=== PATIENT | male | born 1975 | race Caucasian/White ===

== ENCOUNTER 2017-05-11 13:10 | Emergency (ER) | payer SELFPAY ==
[2017-05-11 13:14] VITALS: BP 133/81; PULSE 60; RESP 18; TEMP 37; O2SAT 99; BMI 20.9
--- NOTE | 2017-05-11 13:27 | CT_ITS ---
CT abdomen pelvis wo con CLINICAL INDICATION: Right flank pain with nausea and vomiting ITS.REASON: vomiting/possible kidney stone ORDERING PHYSICIAN: Yann Batista MD PATIENT AGE: 41 years COMPARISON: 07/15/2015 TECHNIQUE: Axial images obtained with sagittal and coronal reformats. PROCEDURE: Oral Contrast: None IV Contrast: None . FINDINGS: Lung bases are clear. The liver, gallbladder, spleen, adrenal glands, and pancreas have an unremarkable unenhanced CT appearance. A tiny calcific density is present along the lateral aspect of the head of the pancreas unchanged and could represent calcification within a small lymph node or within the pancreas itself There is a 17 x 11 mm oval stone at the right ureteropelvic junction with mild right hydronephrosis. An additional 5 mm stone is present in the lower pole the right kidney. There is some minimal ureterectasis distal to the right ureteropelvic junction stone minimal stranding of the periureteral fat. The distal ureter is difficult to follow due to the unopacified bowel loops in patient's [place] of fat. There is however some mild dilatation of the mid ureter. In the right pelvic region there is a new calcific density measuring 3 mm suspicious for distal ureteral stone. This was not present on the previous CT scan of 07/15/2015. The appendix is not clearly delineated. No evidence however of appendicitis. No intestinal obstruction or free air. IMPRESSION: 1. Right ureteropelvic junction stone and 17 x 11 mm with mild right hydronephrosis. 2. 3 mm right distal ureteral stone with mild obstructive uropathy. 3. There are multiple unopacified bowel loops present within the abdomen/pelvis which could obscure or mimic pathology. If symptoms persists, consider repeating exam with IV and oral contrast administration
--- NOTE | 2017-05-11 13:53 | PC.NURSE ---
1350- PT to ct scan.
[2017-05-11 13:54] LABS: Basophils % 0.8 % (0.1-2.0); Eosinophils # 0.1 K/mm3 (0.0-0.4); Eosinophils % 2.8 % (0.1-12.0); Hematocrit 47.9 % (42.0-52.0); Hemoglobin 15.9 g/dL (14.1-18.0); Lymphocytes # 1.7 K/mm3 (0.7-4.5); Lymphocytes % 35.3 K/mm3 (10-50); Mean Corpuscular HGB Conc 33.2 g/dL (31.8-35.4); Mean Corpuscular Hemoglobin 31.1 pg (27.0-31.2); Mean Corpuscular Volume 93.5 fl (80-94); Mean Platelet Volume 8.8 fl (7.4-10.4); Monocytes # 0.2 K/mm3 (0.1-1.0); Monocytes % 4.5 % (1.7-9.3); Neutrophils # 2.7 K/mm3 (1.8-7.8); Neutrophils % 56.6 % (37.0-80.0); Platelet Count 127 K/mm3 (142-424); Red Blood Count 5.12 M/mm3 (4.60-6.20); Red Cell Distribution Width 12.5 % (11.5-17.5); White Blood Count 4.8 K/mm3 (4.8-10.8)
[2017-05-11 14:00] LABS: Alanine Aminotransferase 24 U/L (12-78); Albumin Level 3.9 gm/dL (3.4-5.0); Albumin/Globulin Ratio 1.2 (1.1-1.8); Alkaline Phosphatase 85 U/L (46-116); Amylase 57 U/L (25-125); Anion Gap 13.1 mEq/L (5-15); Aspartate Amino Transferase 14 U/L (15-37); Bilirubin,Total 0.6 mg/dL (0.2-1.0); Blood Urea Nitrogen 17 mg/dL (7-18); Calcium 8.6 mg/dL (8.5-10.1); Carbon Dioxide 29 mmol/L (21.0-32.0); Chloride 109 mmol/L (98-107); Creatinine Clearance Estimated 115 mL/min (0-300); Estimated Glomerular Filt Rate 106 ml/min (>60); GFR (African American) 128 ML/MIN (>60); Globulin 3.2 gm/dl (1.3-3.2); Glucose 100 mg/dL (74-106); Lipase 115 u/L (73-393); Potassium 4.1 mmoL/L (3.5-5.1); Sodium 147 mmol/L (136-145); Total Protein,Serum 7.1 gm/dL (6.4-8.2)
[2017-05-11 14:42] VITALS: BP 125/74; PULSE 64; O2SAT 96
--- NOTE | 2017-05-11 14:56 | HMH.EDABDPAI ---
ED Disposition Clinical Impression: Renal colic on right side, Nephrolithiasis Disposition: Home, Self-Care Condition on Discharge: Good Instructions: DI for Acute Abdomen Additional Instructions: Please take the pain medications as directed, drink plenty of fluids (water, NOT soda!), follow-up with one of the urologists (see attached list) within the next 2-3 days. Prescriptions: Tramadol HCl [Ultram 50mg tablet] 50 mg PO QIDP PRN #10 tab PRN Reason: pain Referrals: Byron Garcia MD [Staff Physician] - López Soliz MD [Staff Physician] - Diana Lang [Referring] - Time of Disposition: 14:56 - Critical Care Critical Care Time: No Attestation: On 05/11/17, the high probability of a clinically significant, sudden or life threatening deterioration of the following system(s) required my full and direct attention, intervention and personal management. The time I documented below is in addition to time spent performing reported procedures but includes the following listed in this critical care notation. Medical Decision Making - Medical Records Medical records reviewed: Yes: I reviewed the patient's medical records. Vital Signs: 05/11/17 13:14 05/11/17 14:42 05/11/17 15:20 Temperature 98.6 F 98.3 F Temperature Source Temporal Artery Scan Temporal Artery Scan Pulse Rate 82 Pulse Rate [Right Brachial] 60 64 Respiratory Rate 18 18 Blood Pressure 134/85 Blood Pressure [Right Arm] 133/81 125/74 Blood Pressure Mean [Right Arm] 98 91 Blood Pressure Source Automatic Cuff Blood Pressure Source [Right Arm] Automatic Cuff Automatic Cuff Blood Pressure Position Sitting Blood Pressure Position [Right Arm] Sitting Sitting 02 Sat by Pulse Oximetry 99 96 Oxygen Delivery Method Room Air Room Air Room Air - Lab Data Lab results reviewed: Yes: I reviewed the patient's lab results. Lab Results 05/11/17 13:35: WBC 4.8, RBC 5.12, Hgb 15.9, Hct 47.9, MCV 93.5, MCH 31.1, MCHC 33.2, RDW 12.5, Plt Count 127 L, MPV 8.8, Neut % (Auto) 56.6, Lymph % (Auto) 35.3, [place] % (Auto) 4.5, Eos % (Auto) 2.8, Baso % (Auto) 0.8, Neut # (Auto) 2.7, Lymph # (Auto) 1.7, [place] # (Auto) 0.2, Eos # (Auto) 0.1, Baso # (Auto) 0.0 05/11/17 13:35: Sodium 147 H, Potassium 4.1, Chloride 109 H, Carbon Dioxide 29, Anion Gap 13.1, BUN 17, Creatinine 0.80, Estimated Creat Clear 115, Estimated GFR 106, Est GFR ( Amer) 128, Glucose 100, Calcium 8.6, Total Bilirubin 0.6, AST 14 L, ALT 24, Alkaline Phosphatase 85, Total Protein 7.1, Albumin 3.9, Globulin 3.2, Albumin/Globulin Ratio 1.2, Amylase 57, Lipase 115 Result diagrams: 05/11/17 13:35 05/11/17 13:35 Orders (Tests/Meds): ED MEDICATIONS Discontinued Medications Generic Name Dose Route Start Last Admin Trade Name Freq PRN Reason Stop Dose Admin Lactated Ringer's 1,000 mls @ 999 mls/hr 05/11/17 13:30 05/11/17 13:48 Lactated Ringer's 1000 Ml Bag IV 05/11/17 14:30 999 mls/hr .Q1H1M ROMAIN Administration Ketorolac Tromethamine 30 mg 05/11/17 13:29 05/11/17 13:48 Toradol 30mg/Ml Vial IV 05/11/17 13:30 30 mg ONCE ONE Administration Ondansetron HCl 4 mg 05/11/17 13:29 05/11/17 13:48 Zofran 4mg/2ml Vial IV 05/11/17 13:30 4 mg ONCE ONE Administration - CT Data CT Scan: Abdomen, Pelvis Time Received: 15:[address] Reviewed: Yes: I have reviewed the patient's CT results, I have viewed the radiologist's interpretation Findings Narrative: 17x11 mm stone at right UPJ - Thiago Inquiry Pt receiving controlled substance: Yes Thiago was queried for this patient: No Reason not queried -: Hospital network issues Risks and benefits of using a controlled substance: were discussed with pt by me - Reevaluation(s) Time: 15:00 Reevaluation #1: Patient appears medically stable in no acute distress. He will follow-up with urology as soon as possible. Abdominal Pain HPI - General Chief Complaint: Abdominal Pain Stated Complaint:
[2017-05-11 15:20] VITALS: BP 134/85; PULSE 82; RESP 18; TEMP 36.8; O2SAT 99
== END 2017-05-11 15:20 | disposition home or self-care (01) ==
PROVIDERS: Emergency Provider Emergency Medicine; PCP Family Medicine
DX: N20.0 Calculus of kidney (principal); F17.210 Nicotine dependence, cigarettes, uncomplicated
CPT/HCPCS: 74176; 80053; 82150; 83690; 85025; 96365; 96375; 99282; J2405

== ENCOUNTER → 2017-05-26 10:42 | Outpatient (CLI) | payer BC, SELFPAY ==
--- NOTE | 2017-05-26 10:47 | XR_ITS ---
XR KUB CLINICAL INDICATION: ITS.REASON: RT RENAL STONE ORDERING PHYSICIAN: Byron Garcia MD PATIENT AGE: 41 years COMPARISON: CT scan of 05/11/2017 FINDINGS: A right ureteral stent has been placed with the proximal aspect overlying the renal pelvis region and distal aspect overlying the urinary bladder. Previously noted proximal right ureteral stone is no longer apparent. There are at least 2 stones overlying the distal aspect of the right ureteral stent measuring approximately 3 and 2.5 mm. These are consistent with stone fragments. IMPRESSION: Interval placement of right ureteral stent. Proximal right ureteral stone no longer evident however, there are 2 stone fragments in the distal ureter.
== END ==
PROVIDERS: PCP Family Medicine; Visit Provider Urology
DX: N20.0 Calculus of kidney (principal)
CPT/HCPCS: 74018

== ENCOUNTER 2022-12-07 14:46 | Emergency (ER) | payer BC, SELFPAY ==
[2022-12-07 14:48] VITALS: BP 128/83; PULSE 65; RESP 17; TEMP 36.6; O2SAT 100; BMI 20.3
--- NOTE | 2022-12-07 15:16 | PC.NURSE ---
Dr. Moreno at [facility]
--- NOTE | 2022-12-07 15:21 | CT_ITS ---
PROCEDURE INFORMATION: Exam: CT Abdomen And Pelvis With Contrast Exam date and time: 12/07/2022 4:27 PM Age: 47 years old Clinical indication: Abdominal pain; Additional info: Rlq pain TECHNIQUE: Imaging protocol: Computed tomography of the abdomen and pelvis with contrast. Radiation optimization: All CT scans at this facility use at least one of these dose optimization techniques: automated exposure control; mA and/or kV adjustment per patient size (includes targeted exams where dose is matched to clinical indication); or iterative reconstruction. Contrast material: ISOVUE; Contrast volume: 75 ml; Contrast route: IV; REPORTING DATA: Count of CT and Cardiac NM exams in prior 12 months: This patient has received 0 known CTs and 0 known cardiac nuclear medicine studies in the 12 months prior to the current study. COMPARISON: [facility] CT abdomen pelvis wo con 05/11/2017 1:49 PM FINDINGS: Liver: There are calcifications in the liver which most likely reflect calcified granulomas. Gallbladder and bile ducts: Normal. No calcified stones. No ductal dilation. Pancreas: Normal. No ductal dilation. Spleen: There are multiple calcifications in the spleen most likely reflects small granulomas. Adrenal glands: Normal. No mass. Kidneys and ureters: Normal. No hydronephrosis. Stomach and bowel: There is mild fluid distention of small-bowel loops. Appendix: The appendix is not well visualized secondary to a paucity of intraperitoneal fat. No secondary signs of acute appendicitis are seen. Intraperitoneal space: See Appendix finding. Vasculature: Unremarkable. No abdominal aortic aneurysm. Lymph nodes: Unremarkable. No enlarged lymph nodes. Urinary bladder: Unremarkable as visualized. Reproductive: Unremarkable as visualized. Bones/joints: Unremarkable. No acute fracture. Soft tissues: Unremarkable. IMPRESSION: Mild fluid distention of small-bowel loops which could reflect an element of enteritis. Poor visualization of the appendix secondary to a paucity of intraperitoneal fat, no secondary signs of acute appendicitis are seen.
--- NOTE | 2022-12-07 15:45 | HMH.EDGENADL ---
Discharge Plan Disposition Patient Disposition: Home, Self-Care Condition: Good Chief Complaint: Abdominal Pain Prescriptions Prescriptions: No Action tramadol 50 MG tablet 50 mg PO QIDP PRN (Reason: pain) Qty: 10 0RF Referrals Follow up/Referrals: Miko Mccain MD [Referring] - See instructions Clinical Impressions Clinical Impression: Enteritis Instructions Patient Instructions: DI for Acute Abdominal Pain, Acute Abdominal Pain, DI for Enteritis Discharge ED Provider: Cameron Moreno General Adult HPI General Chief complaint: Abdominal Pain Stated complaint: stomach pain Time Seen by Provider: 12/07/22 15:07 Mode of Arrival: Family Vehicle Source of Information: Patient Limitations: No Limitations Description of Symptoms (Recalled from ER Triage Doc. by RN): Pt c/o diffuse abd pain. that began this morning when he was drinking coffee. States the pain is intermittent and cramping like nature. Denies any n/v/d. Denies any tarry or red stool. Denies any fever, chills, or body aches. States the pain feels better when laying on his side. Tender t/o abd and tight feeling. States he has a hx of kidney stones. History of Present Illness HPI narrative: Patient with not significant history who presents to the ED with complaints of diffuse abdominal pain. Patient notes that the abdominal pain began this morning while he was drinking coffee. Patient describes the pain as a intermittent sharp, cramping sensation diffusely throughout his abdomen, but more prominent in the lower quadrants. Patient denies any nausea, vomiting, diarrhea, or GI bleeding. Patient denies any fevers, chills. Patient notes last bowel movement this morning. Patient notes he has a history of kidney stones, but this pain feels different from his kidney stones. Related Data Previous Rx's Medication Instructions Recorded tramadol 50 mg tablet 50 mg PO QIDP PRN pain #10 tabs 05/11/17 Allergies Allergy/AdvReac Type Severity Reaction Status Date / Time No Known Allergies Allergy Verified 05/11/17 13:19 [facility] Disclaimer: The information contained in this section may have been updated after the patient was seen, as this information can be updated by other users. Social History Smoking Status: Current every day smoker tobacco type: cigarettes alcohol intake: never substance use type: denies use current occupational status: employed Travel in the last 8 weeks: None ROS Obtained: Yes All systems reviewed & no additional complaints except as documented Physical Exam General General appearance: alert and in no apparent distress Head Head exam: atraumatic, normocephalic and normal inspection Eye Eye exam: Present normal appearance, PERRL and EOMI; Absent scleral icterus or nystagmus ENT ENT exam: Present normal exam, mucous membranes moist and normal external ear exam Neck Neck exam: Present normal inspection, full ROM and trachea midline Chest Chest inspection: Present normal inspection and symmetric chest wall rise; Absent tenderness Respiratory Respiratory exam: Present normal lung sounds bilaterally; Absent respiratory distress, wheezes or accessory muscle use Cardiovascular Cardiovascular exam: Present regular rate, normal rhythm and normal heart sounds Abdominal Exam Abdominal exam: Present soft and tenderness (TTP in RLQ/LLQ); Absent distention, guarding, rebound, rigidity, trauma, ascites or pulsatile mass exam: Present deferred Extremities Exam Extremities exam: Present normal inspection and full ROM; Absent tenderness Back Exam Back exam: Present normal inspection and full ROM; Absent tenderness Neurological Exam Neurological exam: Present alert, oriented X3, normal gait and motor sensory deficit Psychiatric Psychiatric exam: Present normal affect and normal mood Skin Skin exam: Present warm, dry and normal color Medical Decision Making Medical Records Medical records reviewed: Yes I r
[2022-12-07 16:01] VITALS: BP 121/48; PULSE 54; O2SAT 100
--- NOTE | 2022-12-07 16:13 | PC.NURSE ---
rounded on pt, pt has visitor at [facility], call button in reach pt reports still having pain, offered to ask ER MD for more medication for pain, pt declined at this time, states hopefully it will start working soon informed pt to let staff know if he needs more medication for pian, pt verbalized understanding
[2022-12-07 16:14] LABS: Basophils % 0.5 % (0.1-2.0); Eosinophils % 0.8 % (0.1-12.0); Hematocrit 41.6 % (42.0-52.0); Hemoglobin 16.3 g/dL (14.1-18.0); Lymphocytes # 0.8 K/mm3 (0.7-4.5); Lymphocytes % 15.8 % (10-50); Mean Corpuscular HGB Conc 39.2 g/dL (31.8-35.4); Mean Corpuscular Volume 94.3 fl (80-94); Mean Platelet Volume 8.6 fl (7.4-10.4); Monocytes # 0.2 K/mm3 (0.1-1.0); Monocytes % 3.8 % (1.7-9.3); Platelet Count 154 K/mm3 (142-424); Red Blood Count 4.41 M/mm3 (4.60-6.20); White Blood Count 5.1 K/mm3 (4.8-10.8)
[2022-12-07 16:16] LABS: Chloride 104 mmol/L (98-107); Potassium 4.7 mmoL/L (3.5-5.1); Sodium 141 mmol/L (136-145)
[2022-12-07 16:17] LABS: Lactic Acid 1.5 mmol/L (0.7-2.1)
[2022-12-07 16:18] LABS: Alanine Aminotransferase 17 U/L (12-78); Alkaline Phosphatase 68 U/L (38-126); Anion Gap 13.7 mEq/L (5-15); Aspartate Amino Transferase 20 U/L (17-59); Bilirubin,Total 0.8 mg/dl (0.2-1.3); Blood Urea Nitrogen 15 mg/dl (9-20); Carbon Dioxide 28 mmol/L (22.0-30.0); Creatinine Clearance Estimated 107 mL/min (50-200); Estimated Glomerular Filt Rate 103 ml/min (>60); GFR (African American) 124 ML/MIN (>60); Lipase 60 U/L (23-300)
[2022-12-07 16:19] LABS: Microscopic, Urine URINE MICROSCOPIC (MICROSCOPIC)
[2022-12-07 16:19] LABS: Albumin Level 4.4 g/dl (3.5-5.0); Albumin/Globulin Ratio 1.3 (1.1-1.8); Calcium 9.4 mg/dl (8.4-10.2); Globulin 3.3 g/dL (1.3-3.2); Glucose 100 mg/dl (74-100); Total Protein,Serum 7.7 g/dl (6.3-8.2)
[2022-12-07 16:33] LABS: Appearance,Urine CLEAR (Clear); Bilirubin,Urine Negative (Negative); Blood, Urine Negative (Negative); Color,Urine YELLOW (Yellow); Glucose,Urine (UA) Negative (Negative); Ketones,Urine Negative (Negative); Leukocyte Esterase,Urine Negative (Negative); Nitrate,Urine Negative (Negative); Protein,Urine Negative (Negative); Specific Gravity, Urine 1.025 (1.005-1.030); Urobilinogen,Urine 0.2 EU/dl (0.2)
[2022-12-07 16:56] VITALS: BP 131/85; PULSE 60; RESP 18; TEMP 36.7; O2SAT 100
== END 2022-12-07 16:57 | disposition home or self-care (01) ==
PROVIDERS: Emergency Provider Emergency Medicine; PCP Family Medicine
DX: R10.31 Right lower quadrant pain (principal); R10.32 Left lower quadrant pain; K52.9 Noninfective gastroenteritis and colitis, unspecified
CPT/HCPCS: 74177; 80053; 81001; 83605; 83690; 85025; 96361; 96374; 96375; 99285; J2405; Q9967